=== PATIENT | female | born 1985 | race Caucasian/White ===

== ENCOUNTER 2017-12-12 09:07 | Emergency (ER) | payer BC ==
--- OUTSIDE RECORDS SUMMARY | 2017-12-12 09:09 | XMS REPORT | Clinical Summary ---
:1985 Author Organization [facility] Address [address] [place] [address] Care Team Providers Name Role Phone Lamar Phan Primary Care Provider Allergies Active Allergy Reactions Severity Noted Date Comments Doxycycline GI Intolerance 10/24/2017 Morphine High 10/24/2017 blisters Current Medications Prescription Sig. Disp. Refills Start Date End Date Status loratadine-pseudoepHE Take 1 tablet Active Drine (CLARITIN-D by mouth 24-hour) 10-240 mg daily. per 24 hr tablet PARoxetine (PAXIL) 40 Take 40 mg by Active MG tablet mouth every morning. diphenhydrAMINE Take 50 mg by Active (BENADRYL) 25 mg mouth nightly capsule as needed for itching. pamabrom (DIUREX MAX) Take by mouth Active 50 mg tablet daily. CHOLECALCIFEROL, Take by Active VITAMIN D3, (VITAMIN mouth. D3 ORAL) levothyroxine Take 100 mcg Active (SYNTHROID) 100 mcg by mouth tablet daily. 5-hydroxytryptophan, Take by Active 5-HTP, (5-HTP) 100 mg mouth. capsule potassium 99 mg Take by Active tablet mouth. cyanocobalamin Take 1,000 Active (VITAMIN B-12) 1000 mcg by mouth MCG tablet daily. magnesium 200 mg Take 400 mg Active tablet by mouth daily. acetaminophen-codeine Take 1 tablet Discontinued (TYLENOL WITH CODEINE by mouth 8 #3) 300-30 mg per every 4 tablet (four) hours as needed for moderate pain. acetaminophen-codeine Take 1-2 45 tablet 0 11/08/2017 Discontinued (TYLENOL WITH CODEINE tablets by 8 #3) 300-30 mg per mouth every 4 tablet (four) hours as needed for moderate pain for up to 45 doses. amoxicillin-pot Take 1 tablet 14 tablet 0 11/08/2017 Discontinued clavulanate by mouth 2 8 (AUGMENTIN) 875-125 (two) times a mg per tablet day for 7 days. docusate sodium Take 1 20 capsule 0 11/08/2017 Discontinued (COLACE) 100 MG capsule (100 8 capsule mg total) by mouth 2 (two) times a day for 10 days. ondansetron ODT Take 1 tablet 15 tablet 0 11/08/2017 Discontinued (ZOFRAN ODT) 4 MG (4 mg total) 8 disintegrating tablet by mouth every 8 (eight) hours as needed for nausea or vomiting for up to 30 days. amoxicillin-pot Take 1 tablet 14 tablet 0 11/08/2017 clavulanate by mouth 2 8 (AUGMENTIN) 875-125 (two) times a mg per tablet day for 7 days. acetaminophen-codeine Take 1-2 45 tablet 0 11/08/2017 (TYLENOL WITH CODEINE tablets by 8 #3) 300-30 mg per mouth every 4 tablet (four) hours as needed for moderate pain for up to 45 doses. docusate sodium Take 1 20 capsule 0 11/08/2017 (COLACE) 100 MG capsule (100 8 capsule mg total) by mouth 2 (two) times a day for 10 days. ondansetron ODT Take 1 tablet 15 tablet 0 11/08/2017 (ZOFRAN ODT) 4 MG (4 mg total) 8 disintegrating tablet by mouth every 8 (eight) hours as needed for nausea or vomiting for up to 30 days. Active Problems Not on file Encounters Date Type Specialty Care Team Description 11/08/2017 Hospital Encounter Plastic Surgery Susana Le MD 11/08/2017 Procedure Pass Plastic Surgery 11/08/2017 Surgery Plastic Surgery Mimi, ENDOSCOPIC SINUS MD Susana SURGERY 11/06/2017 Anesthesia Event Plastic Surgery Sathya De Los Santos APRN 10/24/2017 Pre-Admit Testing Pre-Admission Mimi, Pre-op testing Appointment Testing MD Susana (Primary Dx) after 12/11/2016 Social History Tobacco Use Types Packs/Day Years Used Date Former Smoker Quit: 2014 Smokeless Tobacco: Never Used Alcohol Use Drinks/Week oz/Week Comments Yes 20/week Currently Estimated Date of Delivery Comments Yes Sex Assigned at Date Recorded Not on file Last Filed Vital Signs Vital Sign Reading Time Taken Blood Pressure 130/85 11/08/2017 4:50 PM CDT Pulse 130 11/08/2017 4:50 PM CDT Temperature 37 C (98.6 F) 11/08/2017 4:50 PM CDT Respiratory Rate 15 11/08/2017 4:50 PM CDT Oxygen Saturation 98% 11/08/2017 4:50 PM CDT Inhaled Oxygen Concentration - - Weight 78.9 kg (174 lb) 11/08/2017 10:45 AM CDT Height 175.3 cm (5' 9") 11/08/2017 10:45 AM CDT Body Mass Index 25.7 11/08/2017 10:45 AM CDT Plan of Treatment Health Maintenance Due Date Last Done Comments PAP SMEAR 2005 INFLUENZA VACCINE 03/20/2018 Implants Implanted Type Area Job Foreman Device Expiration Model / Identifier Date Serial / Lot Propel Contour - [id number] Surgical N/A: N/A INTERSECT ENT 04/06/2018 [id number] / Implanted: 11/08/2017 (Quantity not on file) Implants; / Expanders; [id number] Extenders; Surgical Wires Implant Nasal Latera Kit - [id number] Surgical N/A: N/A 07/24/2018 LATSYS / Implanted: 11/08/2017 (Quantity not on file) Implants; / Expanders; [id number] Extenders; Surgical Wires Procedures Procedure Name Priority Date/Time Associated Diagnosis Comments AR AN ELECTIVE Routine 11/08/2017 12:34 PM ENDOTRACHEAL AIRWAY CDT Procedure Note - Devon Iqbal CRNA - 11/08/2017 12:34 PM CDT Airway Date/Time: 11/08/2017 12:25 PM Performed by: DEVON IQBAL Authorized by: SARA SELLERS Location: OR Urgency: Elective Difficult Airway: No Preoxygenated with 100% O2: Yes C-spine Precautions Maintained Throughout: No Mask Ventilation: Easy mask Final Airway Type: Endotracheal airway Final Endotracheal Airway: ETT and reinforced tube Cuffed: Yes Technique Used: Direct laryngoscopy Devices/Methods Used in Placement: Intubating stylet Insertion Site: Oral Blade Type: Guzmán Laryngoscope Blade/Videolaryngoscope Blade Size: 2 ETT Size (mm): 6.5 Cuff at minimum occlusion pressure: Yes Measured from: Teeth ETT to Teeth (cm): 22 Placement Verified by: CO2 detection, direct visualization and equal breath sounds Laryngoscopic view: Grade I - full view of glottis Rapid Sequence Induction (RSI): No Modified RSI: No Number of Attempts at Approach: 1 Lips and teeth unchanged SEPTOPLASTY, PRITS, NASAL VALVE 11/08/2017 11:00 AM CDT J32.8 CHRONIC SINUSITIS REPAIR W/ LATTERA Case Notes FUSION Special Needs FUSION ENDOSCOPIC SINUS SURGERY 11/08/2017 11:00 AM CDT J32.8 CHRONIC SINUSITIS Case Notes FUSION Special Needs FUSION after 12/11/2016 Results Estimated GFR (10/24/2017 3:14 PM) Component Value Ref Range GFR Non Af Amer >90 mL/min/1.73 m2 GFR Af Amer >90 mL/min/1.73 m2 Comment: Chronic kidney disease: <60 mL/min/1.73m2 Kidney failure: <15 mL/min/1.73m2 The estimated GFR is calculated from the IDMS-traceable Modification of Diet in Renal Disease Equation. The accuracy of the calculation is poor when the creatinine is normal. Calculated values >90 mL/min/1.73m2 are not reported. This equation has not been validated in children (<18 years), women, the elderly (>70 years), or ethnic groups other than Caucasians and Americans. Specimen Performing Laboratory Plasma specimen [facility] DEPARTMENT OF PATHOLOGY AND GENOMIC MEDICINE [address] [place] [id number] CBC with platelet and differential (10/24/2017 3:14 PM) Component Value Ref Range WBC 8.14 4.50 - 11.00 k/uL RBC 5.13 4.20 - 5.50 m/uL HGB 14.6 12.0 - 16.0 g/dL HCT 44.2 37.0 - 47.0 % MCV 86.2 82.0 - 100.0 fL MCH 28.5 27.0 - 34.0 pg MCHC 33.0 31.0 - 37.0 g/dL RDW - SD 40.7 37.0 - 55.0 fL MPV 9.8 8.8 - 13.2 fL Platelet count 300 150 - 400 k/uL Nucleated RBC 0.00 /100 WBC Neutrophils 66.8 39.0 - 69.0 % Lymphocytes 24.6 (L) 25.0 - 45.0 % Monocytes 5.5 0.0 - 10.0 % Eosinophils 2.2 0.0 - 5.0 % Basophils 0.5 0.0 - 1.0 % Immature granulocytes 0.4Comment: "Immature granulocytes" 0.0 - 1.0 % (promyelocytes, myelocytes, metamyelocytes) Specimen Performing Laboratory Blood [facility] DEPARTMENT OF PATHOLOGY AND GENOMIC MEDICINE [address] [place] [id number] Basic metabolic panel (10/24/2017 3:14 PM) Component Value Ref Range Sodium 138 135 - 148 mEq/L Potassium 3.9 3.5 - 5.0 mEq/L Chloride 99 98 - 112 mEq/L CO2 25 24 - 31 mEq/L Anion gap 14 7 - 15 mEq/L Comment: Starting from November , anion gap calculation no longer incorporates potassium. Please note the change. BUN 9 6 - 20 mg/dL Creatinine 0.7 0.5 - 0.9 mg/dL Glucose 76 65 - 99 mg/dL Calcium 9.7 8.3 - 10.2 mg/dL Specimen Performing Laboratory Plasma specimen [facility] DEPARTMENT OF PATHOLOGY AND GENOMIC MEDICINE [address] [place] [id number] after 12/11/2016 Insurance Payer Benefit Plan / Group Subscriber ID Type Phone Address BS [facility] xxxxxxxxxxxx PPO BCBS [facility] OUT OF STATE xxxxxxxxxxxx PPO y [phone] [place] [address]
[2017-12-12] MEDS ORDERED: METHYLPREDNISOLONE 125 MG INJ ONE (09:27)
[2017-12-12] MEDS ORDERED: LEVALBUTEROL 1.25 MG/3 ML NEB ONE ×2 (09:27→09:44)
[2017-12-12] MEDS ORDERED: NA CHLORIDE 0.9% 1,000 ML ONE (09:28)
[2017-12-12] MEDS ORDERED: FAMOTIDINE 20 MG/2 ML VIAL IV ONE (09:28)
[2017-12-12] MEDS ORDERED: DIPHENHYDRAMINE 50 MG/ML VIAL ONE (09:28)
[2017-12-12 10:09] LABS: Urine Blood TRACE (NEG); Urine Glucose NEGATIVE (NEG); Urine Protein NEGATIVE (NEG); Urine Specific Gravity 1.015 (1.005-1.030); Urine pH 6.5 (5.0-7.0)
--- NOTE | 2017-12-12 11:14 | EDPHYS ---
Physician Documentation [facility] Name: Lula Fernandez Age: 32 yrs Sex: Female : 1985 Arrival Date: 12/12/2017 Time: 09:08 Bed 5 Private MD: ED Physician Jese Fry HPI: 12/12 09:34 This 32 yrs old Female presents to ER via Ambulatory with complaints of rn Allergic Reaction. 09:34 The patient presents with itching, rash. Onset: The symptoms/episode began/occurred rn this morning. Associated signs and symptoms: Pertinent positives: rash. Possible causes: The patient has no known obvious cause for the symptoms. Severity of symptoms: At their worst the symptoms were mild. The patient has experienced a previous episode. The patient has not recently seen a physician. Reports woke up with bloody nose and rash to body, diffuse, began this AM, feels tightness and like throat is swelling, has had allergic reaction in past, her rash is more blisters in past, not as bad today. No new medication or exposure. Had sinus surgery 3 weeks ago. . Historical: - Allergies: 09:23 Doxycycline; ss 09:23 Morphine; ss - Home Meds: 09:23 Paxil Oral [Active]; ss - PSHx: 09:23 Appendectomy; ; nasal sx; "tubal"; ss - Immunization history:: Adult Immunizations up to date. - Social history:: Smoking status: Patient/guardian denies using tobacco. - Family history:: not pertinent. - Hospitalizations: : No recent hospitalization is reported. ROS: 09:34 Constitutional: Negative for fever, chills, and weight loss, Eyes: Negative for injury, rn pain, redness, and discharge, ENT: Negative for injury Neck: Negative for injury, pain, and swelling, Cardiovascular: Negative for chest pain, palpitations, and edema, Respiratory: Negative for cough, wheezing, and pleuritic chest pain, Abdomen/GI: Negative for abdominal pain, nausea, vomiting, diarrhea, and constipation, MS/Extremity: Negative for injury and deformity, Skin: Negative for injury Neuro: Negative for headache, weakness, numbness, tingling, and seizure. Exam: 09:34 Constitutional: This is a well developed, well nourished patient who is awake, alert, rn and in no acute distress. Head/Face: Normocephalic, atraumatic. Eyes: Pupils equal round and reactive to light, extra-ocular motions intact. Lids and lashes normal. Conjunctiva and sclera are non-icteric and not injected. Cornea within normal limits. Periorbital areas with no swelling, redness, or edema. ENT: Nares patent. No nasal discharge, no septal abnormalities noted. No stridor Neck: Trachea midline, no thyromegaly or masses palpated, and no cervical lymphadenopathy. Supple, full range of motion without nuchal rigidity, or vertebral point tenderness. No Meningismus. Cardiovascular: Regular rate and rhythm with a normal S1 and S2. No gallops, murmurs, or rubs. Normal PMI, no JVD. No pulse deficits. Respiratory: Lungs have equal breath sounds bilaterally, clear to auscultation and percussion. No rales, rhonchi or wheezes noted. No increased work of breathing, no retractions or nasal flaring. Abdomen/GI: Soft, non-tender, with normal bowel sounds. No distension or tympany. No guarding or rebound. No evidence of tenderness throughout. Skin: Warm, dry, several areas or mixed urticaria and clear vesicular lesions over neck and arms, no skin sloughing, no bullae, no oral lesions. MS/ Extremity: Pulses equal, no cyanosis. Neurovascular intact. Full, normal range of motion. Equal circumference. Neuro: Awake and alert, GCS 15, oriented to person, place, time, and situation. Cranial nerves II-XII grossly intact. Motor strength 5/5 in all extremities. Sensory grossly intact. 10:46 ECG was reviewed by the Attending Physician. rn Vital Signs: 09:23 BP 134 / 94; Pulse 93; Resp 19; Temp 98.6(O); Pulse Ox 100% on R/A; Weight 79.38 kg; ss Height 5 ft. 9 in. (175.26 cm); Pain 8/10; 10:03 BP 127 / 83; Pulse 89; Resp 19; Pulse Ox 100% on 6% Nebulizer Mask; jb1 11:00 BP 120 / 73; Pulse 88; Resp 18; Pulse Ox 99% on 2 lpm NC; jb1 09:23 Body Mass Index 25.84 (79.38 kg, 175.26 cm) MDM: 09:10 Patient medically screened. rn 11:06 Differential diagnosis: urticaria. rn 11:10 Data reviewed: vital signs, nurses notes, lab test result(s), EKG, and as a result, I rn will discharge patient. Counseling: I had a detailed discussion with the patient and/or guardian regarding: the historical points, exam findings, and any diagnostic results supporting the discharge/admit diagnosis, lab results, the need for outpatient follow up, to return to the emergency department if symptoms worsen or persist or if there are any questions or concerns that arise at home. Response to treatment: the patient's symptoms have mildly improved after treatment. Special discussion: I discussed with the patient/guardian in detail that at this point there is no indication for admission to the hospital. It is understood, however, that if the symptoms persist or worsen the patient needs to return immediately for re-evaluation. ED course: Ambulatory, feels better, most likely atypical allergic reaction, ecg normal. . 12/12 09:31 Order name: Urine Dipstick--Ancillary (enter results); Complete Time: 10:11 [facility] 12/12 09:31 Order name: Urine --Ancillary (enter results); Complete Time: 10:11 [facility] 12/12 09:17 Order name: IV Start; Complete Time: 09:55 12/12 09:17 Order name: Urine Dipstick-Ancillary (obtain specimen); Complete Time: 09:55 12/12 09:17 Order name: Urine Test (obtain specimen); Complete Time: 09:55 12/12 10:22 Order name: EKG; Complete Time: 10:22 12/12 10:22 Order name: EKG - Nurse/Tech; Complete Time: 11:03 rn EC:46 Rate is 76 beats/min. Rhythm is regular. QRS [place] is Normal. DC interval is normal. QRS rn interval is normal. QT interval is normal. No Q waves. T waves are Normal. No ST changes noted. Clinical impression: Normal ECG. Interpreted by me. Administered Medications: 09:30 Drug: SOLU-Medrol 125 mg Route: IVP; Site: left forearm; hb 10:15 Follow up: Response: No adverse reaction hb 09:30 Drug: Pepcid 20 mg Route: IVP; Site: left forearm; hb 10:00 Follow up: Response: No adverse reaction hb 09:30 Drug: Benadryl 50 mg Route: IVP; Site: left forearm; hb 10:15 Follow up: Response: No adverse reaction hb 09:30 Drug: Xopenex 1.25 mg Route: Inhalation; hb 09:41 Drug: NS 0.9% 1000 ml Route: IV; Rate: 1000 ml; Site: left forearm; sv 10:45 Follow up: Response: No adverse reaction; IV Status: Completed infusion hb Disposition: 12/12/17 11:14 Discharged to Home. Impression: Urticaria, unspecified. - Condition is Stable. - Discharge Instructions: Hives. - Prescriptions for Bactroban 2 % Topical Ointment - Apply to affected area 1 application by TOPICAL route every 12 hours; 30 gram. Prednisone 20 mg Oral Tablet - take 3 tablet by ORAL route once daily for 5 days; 15 tablet. - Medication Reconciliation Form, Thank You Letter, Antibiotic Education, Prescription Opioid Use, Work release form, Family Work Release form. - Follow up: Private Physician; When: As needed; Reason: Recheck today's complaints, Re-evaluation by your physician. - Problem is new. - Symptoms have improved. Signatures: Dispatcher [employer] Evelyn Moise RN RN Jese Simon MD MD rn Smirch, Shelby, RN RN ss Baxter, Heather, RN RN hb
--- NOTE | 2017-12-12 11:14 | ER ---
Nurse's Notes [facility] Name: Lula Fernandez Age: 32 yrs Sex: Female : 1985 Arrival Date: 12/12/2017 Time: 09:08 Bed 5 Private MD: Diagnosis: Urticaria, unspecified Presentation: 12/12 09:18 Presenting complaint: Patient states: woke up this morning with a nose bleed, itching ss painful skin to face and chest that seems to be "working it's way down." reddened rash noted to R side of neck and behind bilateral ears as well as R forearm. Pt states she may feels short of breath, but doesn't know if that is just because she is anxious or not. Transition of care: patient was not received from another setting of care. Onset: The symptoms/episode began/occurred this morning. Anaphylaxis evaluation, no signs or symptoms of anaphylaxis were noted. Onset of symptoms was December 12, 2017. Initial Sepsis Screen: Does the patient meet any 2 criteria? No. Patient's initial sepsis screen is negative. Does the patient have a suspected source of infection? No. Patient's initial sepsis screen is negative. Care prior to arrival: None. 09:18 Method Of Arrival: Ambulatory ss 09:18 Acuity: MINERVA 3 hb Historical: - Allergies: 09:23 Doxycycline; ss 09:23 Morphine; ss - Home Meds: 09:23 Paxil Oral [Active]; ss - PSHx: 09:23 Appendectomy; ; nasal sx; "tubal"; ss - Immunization history:: Adult Immunizations up to date. - Social history:: Smoking status: Patient/guardian denies using tobacco. - Family history:: not pertinent. - Hospitalizations: : No recent hospitalization is reported. Screenin:30 Abuse screen: Denies threats or abuse. Denies injuries from another. Nutritional hb screening: No deficits noted. Tuberculosis screening: No symptoms or risk factors identified. Fall Risk None identified. Assessment: 09:30 General: Appears in no apparent distress. Behavior is cooperative, anxious. Pain: Pain hb currently is 5 out of 10 on a pain scale. Neuro: Level of Consciousness is awake, alert, obeys commands, Oriented to person, place, time, situation. Cardiovascular: Capillary refill < 3 seconds Patient's skin is warm and dry. Respiratory: Airway is patent Trachea midline Respiratory effort is even, unlabored, Respiratory pattern is regular, symmetrical, Breath sounds are clear bilaterally. Derm: Rash noted that is urticaria, on face, arms, neck. Vital Signs: 09:23 BP 134 / 94; Pulse 93; Resp 19; Temp 98.6(O); Pulse Ox 100% on R/A; Weight 79.38 kg; ss Height 5 ft. 9 in. (175.26 cm); Pain 8/10; 10:03 BP 127 / 83; Pulse 89; Resp 19; Pulse Ox 100% on 6% Nebulizer Mask; jb1 11:00 BP 120 / 73; Pulse 88; Resp 18; Pulse Ox 99% on 2 lpm NC; jb1 09:23 Body Mass Index 25.84 (79.38 kg, 175.26 cm) ED Course: 09:08 Patient arrived in ED. as 09:09 Jese Fry MD is Attending Physician. rn 09:18 Lula Villela RN is Primary Nurse. hb 09:21 Triage completed. ss 09:23 Arm band placed on right wrist. ss 09:30 Patient has correct armband on for positive identification. Bed in low position. Call hb light in reach. Side rails up X 1. 09:40 Inserted saline lock: 22 gauge in left forearm, using aseptic technique. ,using aseptic sv technique. diffusics Flushed left forearm with 5 ml normal saline. 10:50 EKG done, by inside technical sales representative. reviewed by Jese Fry MD. at1 Administered Medications: 09:30 Drug: SOLU-Medrol 125 mg Route: IVP; Site: left forearm; hb 10:15 Follow up: Response: No adverse reaction hb 09:30 Drug: Pepcid 20 mg Route: IVP; Site: left forearm; hb 10:00 Follow up: Response: No adverse reaction hb 09:30 Drug: Benadryl 50 mg Route: IVP; Site: left forearm; hb 10:15 Follow up: Response: No adverse reaction hb 09:30 Drug: Xopenex 1.25 mg Route: Inhalation; hb 09:41 Drug: NS 0.9% 1000 ml Route: IV; Rate: 1000 ml; Site: left forearm; sv 10:45 Follow up: Response: No adverse reaction; IV Status: Completed infusion hb Outcome: 11:14 Discharge ordered by . rn 11:38 Patient left the ED. hb Signatures: Attila Charlton jb1 Evelyn Moeller, LEXIE RN sv Janie Bryan Roman, MD MD rn Smirch, Shelby, RN RN ss Juana butt, card assembler EKG Tat1 Lula Villela RN RN hb Corrections: (The following items were deleted from the chart) 10: 09:18 Acuity: MINERVA 4 ss hb : 09:30 Derm: Rash noted that is urticaria, on face, arms, neck, trunk hb hb
[2017-12-12 11:44] VITALS: TEMP 98.6
[2017-12-12 11:46] VITALS: BP 120/73; O2SAT 99
--- NOTE | 2017-12-12 13:38 | EKG ---
Test Date: 2017-12-12 Test Time: 10:32:29 Soda Tester: DENEEN MEASUREMENT RESULTS: Intervals: Rate: 76 NH: 150 QRSD: 76 QT: 390 QTc: 438 [place]: P: 42 NH: 150 QRS: 40 T: 20 INTERPRETIVE STATEMENTS: Normal sinus rhythm Normal ECG Compared to ECG 07/26/2017 12:15:20 Sinus tachycardia no longer present Electronically Signed On 12-12-17 13:38:06 CDT by Jung Lilly
== END 2017-12-12 11:38 | disposition home or self-care (01) ==
LOC: ER 09:07
DX: L50.9 Urticaria, unspecified (principal)
CPT/HCPCS: 81003; 81025; 93005; 96361; 96374; 96375; 99284; J2930; J7030

== ENCOUNTER 2019-02-24 20:54 | Emergency (ER) | payer OTHER, BC ==
--- OUTSIDE RECORDS SUMMARY | 2019-02-24 20:57 | XMS REPORT | Clinical Summary ---
:1985 Author Organization [facility] Address [address] [place] [address] Care Team Providers Name Role Phone Lamar Phan Primary Care Provider Allergies Active Allergy Reactions Severity Noted Date Comments Doxycycline GI Intolerance 10/24/2017 Morphine High 10/24/2017 blisters Medications Medication Sig Dispensed Refills Start Date End Date Status loratadine-pseudoepHEDri Take 1 tablet by 0 Active ne (CLARITIN-D 24-hour) mouth daily. 10-240 mg per 24 hr tablet PARoxetine (PAXIL) 40 MG Take 40 mg by 0 Active tablet mouth every morning. diphenhydrAMINE Take 50 mg by 0 Active (BENADRYL) 25 mg capsule mouth nightly as needed for itching. pamabrom (DIUREX MAX) 50 Take by mouth 0 Active mg tablet daily. CHOLECALCIFEROL, VITAMIN Take by mouth. 0 Active D3, (VITAMIN D3 ORAL) levothyroxine Take 100 mcg by 0 Active (SYNTHROID) 100 mcg mouth daily. tablet 5-hydroxytryptophan, Take by mouth. 0 Active 5-HTP, (5-HTP) 100 mg capsule potassium 99 mg tablet Take by mouth. 0 Active cyanocobalamin (VITAMIN Take 1,000 mcg 0 Active B-12) 1000 MCG tablet by mouth daily. magnesium 200 mg tablet Take 400 mg by 0 Active mouth daily. Active Problems Comments Yes No additional problems on file Social History Tobacco Use Types Packs/Day Years Used Date Former Smoker Quit: 2014 Smokeless Tobacco: Never Used Alcohol Use Drinks/Week oz/Week Comments Yes 20/week Comments Yes Sex Assigned at Date Recorded Not on file Job Start Date Occupation Industry Not on file Not on file Not on file Travel History Travel Start Travel End No recent travel history available. Last Filed Vital Signs Not on file Plan of Treatment Health Maintenance Due Date Last Done Comments INFLUENZA VACCINE 03/20/2019 Implants Implanted Type Area Welcome Hostess Device Shelf Model / Identifier Expiration Serial / Date Lot Tatyana Contour - [id number] Surgical N/A: N/A INTERSECT ENT 04/06/2018 [id number] / Implanted: 11/08/2017 (Quantity not on file) Implants; / Expanders; [id number] Extenders; Surgical Wires Implant Nasal Latera Kit - [id number] Surgical N/A: N/A 07/24/2018 LATSYS / Implanted: 11/08/2017 (Quantity not on file) Implants; / Expanders; [id number] Extenders; Surgical Wires Results Not on fileafter 02/23/2018 Advance Directives Patient has advance care planning documents on file. For more information, please contact:[place] [address]
--- OUTSIDE RECORDS SUMMARY | 2019-02-24 20:57 | XMS REPORT ---
:1985 Author Organization [employer] Care Team Providers Name Role Phone Kathrin Ag Provider Role Unavailable Allergies, Adverse Reactions, Alerts Substance Reaction Event Type Doxycycline Info Not Available Drug Allergy Problems Problem Type Condition Code Onset Dates Condition Status Assessment Non-intractable vomiting with R11.2 Active nausea, unspecified vomiting type Assessment Acute pharyngitis, unspecified J02.9 Active etiology Assessment Respiratory symptoms R09.89 Active Assessment Diarrhea, unspecified type R19.7 Active Problem Anxiety F41.9 Active Problem Kidney stones N20.0 Active Problem Allergic rhinitis J30.9 Active Assessment URI, acute J06.9 Active Assessment Cough, persistent R05 Active Problem Sinus problem J34.9 Active Medications Medication Code Code Instructions Start End Date Status Dosage System Date BusPIRone HCl ND 42160199113 30 MG Orally Active 1 tablet once a day Modafinil ND 07903774792 200 MG Orally Active 1 tablet in the morning Levaquin ND 86271589060 500 MG Orally October Active 1 tablet Once a day 2018 Temazepam ND 08022455156 30 MG Orally Active 1 capsule at bedtime as needed Clonazepam ND 11315076053 0.5 MG Orally Active 1 tablet twice a day Tessalon Perles ND 81710380939 100 mg Orally October Active 1 capsule Three times a 2018 as needed day for cough Ondansetron HCl ND 83683647511 4 MG Orally 1 October Active as directed tablet every 2018 6-8 hours as needed for nausea/vomiting Results No Known Results Summary Purpose [employer]Clinical[employer] Submission
[2019-02-24] MEDS ORDERED: TETANUS & DIPHTHERIA TOX,ADULT 0.5 ML VIAL ONE (21:36)
[2019-02-24] MEDS ORDERED: LIDOCAINE 1% 20 ML MDV ONE (21:36)
--- NOTE | 2019-02-24 22:02 | ER ---
Nurse's Notes [facility] Name: Lula Fernandez Age: 33 yrs Sex: Female : 1985 Arrival Date: 02/24/2019 Time: 20:56 Bed 2 Private MD: Diagnosis: Laceration without foreign body, right lower leg Presentation: 02/24 21:06 Presenting complaint: Patient states: carrying trash bag, unknown sharp object cut her ak1 right calf. bleeding controlled, lac to right calf. pt with high anxiety, hyperventilating. Transition of care: patient was not received from another setting of care. Complicating Factors: There are no complicating factors for this patient. Onset of symptoms was February 24, 2019. Risk Assessment: Do you want to hurt yourself or someone else? Patient reports no desire to harm self or others. Initial Sepsis Screen: Does the patient meet any 2 criteria? No. Patient's initial sepsis screen is negative. Does the patient have a suspected source of infection? No. Patient's initial sepsis screen is negative. Care prior to arrival: None. 21:06 Method Of Arrival: Wheelchair ak1 21:06 Acuity: MINERVA 4 ak1 Triage Assessment: 21:08 General: Appears distressed, uncomfortable, Behavior is anxious, crying. ak1 21:09 Pain: Complains of pain in lateral aspect of right calf. 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 - Social history:: Smoking status: Patient/guardian denies using tobacco. - Ebola Screening: : No symptoms or risks identified at this time. Screenin:09 Abuse screen: Denies threats or abuse. Denies injuries from another. Nutritional ak1 screening: No deficits noted. Tuberculosis screening: No symptoms or risk factors identified. Fall Risk None identified. Assessment: 21:10 General: Appears uncomfortable, Behavior is anxious, crying. Respiratory: Respiratory lp1 effort is labored, Respiratory pattern is hyperventilation Patient coached to slow respirations; Patient states "I have really bad anxiety right now". Musculoskeletal: Circulation, motion, and sensation intact. Injury Description: Laceration is contaminated, 2.6 to 7.5 cm long. 21:54 Reassessment: Patient and/or family updated on plan of care and expected duration. Pain ea level reassessed. Patient is alert, oriented x 3, equal unlabored respirations, skin warm/dry/pink. Provider at bedside suturing laceration. 22:05 Reassessment: Patient and/or family updated on plan of care and expected duration. Pain ea level reassessed. Patient is alert, oriented x 3, equal unlabored respirations, skin warm/dry/pink. Discharge instruction given to patient, verbalized the understanding of instruction. Reassessment: Patient and/or family updated on plan of care and expected duration. Pain level reassessed. Patient is alert, oriented x 3, equal unlabored respirations, skin warm/dry/pink. Discharge instruction given to patient, verbalized the understanding of instruction. Pt left ED ambulatory with significant other, tolerating well. Vital Signs: 21:04 BP 155 / 111; Pulse 161; Resp 28; Temp 99; Pulse Ox 100% on R/A; Weight 81.65 kg (R); ak1 Height 5 ft. 6 in. (167.64 cm) (R); Pain 10/10; 21:28 BP 128 / 100; Pulse 102; Resp 20; Pulse Ox 98% on R/A; lp1 21:53 BP 118 / 84; Pulse 90; Resp 16; Pulse Ox 98% on R/A; lp1 22:00 BP 114 / 89; Pulse 91; Resp 19; Pulse Ox 99% on R/A; ea 21:04 Body Mass Index 29.05 (81.65 kg, 167.64 cm) ak1 ED Course: 20:56 Patient arrived in ED. ag3 21:03 Jose F Us PA is PHCP. jr8 21:03 Jese Fry MD is Attending Physician. jr8 21:07 Triage completed. ak1 21:08 Arm band placed on Patient placed in an exam room, on a stretcher, on pulse oximetry. ak1 21:09 Patient has correct armband on for positive identification. Bed in low position. Call ak1 light in reach. Side rails up X2. Adult w/ patient. Pulse ox on. NIBP on. 21:10 Wound care: to laceration located on lateral aspect of right calf was irrigated with lp1 normal saline. 21:15 Missy Alba, RN is Primary Nurse. lp1 21:24 Cristy Hernandez, LEXIE is Primary Nurse. ea 21:54 Patient did not have IV access during this emergency room visit. lp1 21:57 Assist provider with laceration repair on lateral aspect of right calf that was between ea 2.6 to 7.5 cm using sutures. Set up tray. Performed by Jose F CORNELL Dressed with Neosporin, Patient tolerated well. Administered Medications: 21:27 Drug: Tetanus-Diphtheria Toxoid Adult 0.5 ml {Clinical Quality Assurance Associate: [employer]. Exp: lp1 11/09/2020. Lot #: [id number]. } Route: IM; Site: left deltoid; 21:58 Follow up: Response: No adverse reaction ea 21:36 Drug: Lidocaine (1 %) 1 vials Volume: 20 ml; Route: Infiltration; lp1 Outcome: 22:01 Discharge ordered by . jessica 22:06 Condition: improved ea 22:06 Discharge instructions given to patient, Instructed on discharge instructions, follow up and referral plans. 22:10 Discharged to home ambulatory, with significant other. lp1 22:10 Discharge instructions given to Instructed on discharge instructions, follow up and referral plans. medication usage, wound care, Demonstrated understanding of instructions, follow-up care, medications, wound care, Prescriptions given X 1. 22:11 Patient left the ED. lp1 Signatures: Missy Alba RN Jose F Javier PA PA jr8 Krenek, Amber, RN RN ak1 Antunez, Elena, RN RN ea Gomez, Alice ag3 Corrections: (The following items were deleted from the chart) 22:08 21:57 Assist provider with laceration repair on lateral aspect of right calf that was ea between 2.6 to 7.5 cm using sutures. Set up tray. Performed by Jose F CORNELL Dressed with Neosporin, Patient tolerated well. ea
--- NOTE | 2019-02-24 22:03 | EDPHYS ---
Physician Documentation [facility] Name: Lula Fernandez Age: 33 yrs Sex: Female : 1985 Arrival Date: 02/24/2019 Time: 20:56 Bed 2 Private MD: ED Physician Jese Fry HPI: 02/24 21:58 This 33 yrs old Female presents to ER via Wheelchair with complaints of jr8 Laceration To Leg. 21:58 The patient has a laceration related to: working, occurred outdoors. The laceration(s) jr8 is(are) located on the lateral aspect of right calf. Onset: The symptoms/episode began/occurred acutely, today. Associated signs and symptoms: The patient has no apparent associated signs or symptoms. The patient has not experienced similar symptoms in the past. The patient has not recently seen a physician. Patient was moving trash bags when one she felt something sharp scrape her. Stated that she looked down and saw that her leg was cut and bleeding. Came to ED at that time . 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 - Social history:: Smoking status: Patient/guardian denies using tobacco. - Ebola Screening: : No symptoms or risks identified at this time. ROS: 21:58 Eyes: Negative for injury, pain, redness, and discharge, ENT: Negative for injury, jr8 pain, and discharge, Neck: Negative for injury, pain, and swelling, Cardiovascular: Negative for chest pain, palpitations, and edema, Respiratory: Negative for shortness of breath, cough, wheezing, and pleuritic chest pain, Abdomen/GI: Negative for abdominal pain, nausea, vomiting, diarrhea, and constipation, Back: Negative for injury and pain, MS/Extremity: Negative for injury and deformity, Neuro: Negative for headache, weakness, numbness, tingling, and seizure. 21:58 Skin: Positive for laceration(s), of the lateral aspect of right calf. Exam: 21:58 Eyes: Pupils equal round and reactive to light, extra-ocular motions intact. Lids and jr8 lashes normal. Conjunctiva and sclera are non-icteric and not injected. Cornea within normal limits. Periorbital areas with no swelling, redness, or edema. ENT: Nares patent. No nasal discharge, no septal abnormalities noted. Tympanic membranes are normal and external auditory canals are clear. Oropharynx with no redness, swelling, or masses, exudates, or evidence of obstruction, uvula midline. Mucous membranes moist. Neck: Trachea midline, no thyromegaly or masses palpated, and no cervical lymphadenopathy. Supple, full range of motion without nuchal rigidity, or vertebral point tenderness. No Meningismus. Cardiovascular: Regular rate and rhythm with a normal S1 and S2. No gallops, murmurs, or rubs. Normal PMI, no JVD. No pulse deficits. Respiratory: Lungs have equal breath sounds bilaterally, clear to auscultation and percussion. No rales, rhonchi or wheezes noted. No increased work of breathing, no retractions or nasal flaring. Abdomen/GI: Soft, non-tender, with normal bowel sounds. No distension or tympany. No guarding or rebound. No evidence of tenderness throughout. Back: No spinal tenderness. No costovertebral tenderness. Full range of motion. MS/ Extremity: Pulses equal, no cyanosis. Neurovascular intact. Full, normal range of motion. Neuro: Awake and alert, GCS 15, oriented to person, place, time, and situation. Cranial nerves II-XII grossly intact. Motor strength 5/5 in all extremities. Sensory grossly intact. Cerebellar exam normal. Normal gait. 21:58 Skin: injury, laceration(s), the wound is approximately 5 cm(s), with a depth of 1 cm(s), of the lateral aspect of right calf, that can be described as clean, no foreign body, linear, with mild bleeding. Vital Signs: 21:04 BP 155 / 111; Pulse 161; Resp 28; Temp 99; Pulse Ox 100% on R/A; Weight 81.65 kg (R); ak1 Height 5 ft. 6 in. (167.64 cm) (R); Pain 10/10; 21:28 BP 128 / 100; Pulse 102; Resp 20; Pulse Ox 98% on R/A; lp1 21:53 BP 118 / 84; Pulse 90; Resp 16; Pulse Ox 98% on R/A; lp1 22:00 BP 114 / 89; Pulse 91; Resp 19; Pulse Ox 99% on R/A; ea 21:04 Body Mass Index 29.05 (81.65 kg, 167.64 cm) ak1 Laceration: 21:58 Wound Repair of 5cm ( 2.0in ) subcutaneous laceration to lateral aspect of right calf. jr8 Linear shaped.. Minimal bleeding noted.. Distal neuro/vascular/tendon intact. Anesthesia: Local anesthetic administered with 6 mls of 1% lidocaine. Wound prep: Extensive cleansing with betadine, Wound irrigation with saline, Wound explored extensively. Skin closed with 8 4-0 Prolene using interrupted sutures and sterile technique. Patient tolerated well. MDM: 21:03 Patient medically screened. jr8 21:58 Data reviewed: vital signs, nurses notes, and as a result, I will discharge patient. jr8 Data interpreted: Pulse oximetry: on room air is 98 %. Interpretation: normal. Counseling: I had a detailed discussion with the patient and/or guardian regarding: the historical points, exam findings, and any diagnostic results supporting the discharge/admit diagnosis, the need for outpatient follow up, a family practitioner, to return to the emergency department if symptoms worsen or persist or if there are any questions or concerns that arise at home. 02/24 21:05 Order name: Prolene, Sutures; Complete Time: 21:58 jr8 02/24 21:05 Order name: Dressing - Wound; Complete Time: 21:58 jr8 02/24 21:05 Order name: Gloves, Sterile; Complete Time: 21:27 jr8 02/24 21:05 Order name: Setup Suture Tray; Complete Time: 21:19 jr8 Administered Medications: 21:27 Drug: Tetanus-Diphtheria Toxoid Adult 0.5 ml {Mid Level Game Designer: [employer]. Exp: lp1 11/09/2020. Lot #: [id number]. } Route: IM; Site: left deltoid; 21:58 Follow up: Response: No adverse reaction ea 21:36 Drug: Lidocaine (1 %) 1 vials Volume: 20 ml; Route: Infiltration; lp1 Disposition: 02/25 00:53 Co-signature as Attending Physician, Jese Fry MD. rn Disposition: 02/24/19 22:01 Discharged to Home. Impression: Laceration without foreign body, right lower leg. - Condition is Stable. - Discharge Instructions: Laceration Care, Adult. - Prescriptions for Keflex 500 mg Oral Capsule - take 1 capsule by ORAL route every 6 hours for 5 days; 20 capsule. - Medication Reconciliation Form, Thank You Letter, Antibiotic Education, Prescription Opioid Use form. - Follow up: Private Physician; When: 7 - 10 days; Reason: Wound Recheck, Recheck today's complaints, Continuance of care, Staple/Suture removal, Re-evaluation by your physician. - Problem is new. - Symptoms have improved. Signatures: Jese Fry MD MD rn Missy Alba RN RN lp1 Jose F Us PA PA jr8 Leighann Bonner RN RN ak1 Cristy Hernandez RN ea Corrections: (The following items were deleted from the chart) 02/24 22:11 22:01 02/24/2019 22:01 Discharged to Home. Impression: Laceration without foreign body, lp1 right lower leg. Condition is Stable. Forms are Medication Reconciliation Form, Thank You Letter, Antibiotic Education, Prescription Opioid Use. Follow up: Private Physician; When: 7 - 10 days; Reason: Wound Recheck, Recheck today's complaints, Continuance of care, Staple/Suture removal, Re-evaluation by your physician. Problem is new. Symptoms have improved. jr8
[2019-02-24 23:36] VITALS: TEMP 99
[2019-02-24 23:44] VITALS: BP 114/89; O2SAT 99
== END 2019-02-24 22:11 | disposition home or self-care (01) ==
LOC: ER 20:54
DX: S81.811A Laceration without foreign body, right lower leg, initial encounter (principal); W45.8XXA Other foreign body or object entering through skin, initial encounter; Y93.E9 Activity, other interior property and clothing maintenance; F32.9 Major depressive disorder, single episode, unspecified; F41.9 Anxiety disorder, unspecified; Z88.1 Allergy status to other antibiotic agents; Z88.5 Allergy status to narcotic agent
CPT/HCPCS: 90714; 99284